=== PATIENT | female | born 1995 | race American Indian/Alaskan Native ===

== ENCOUNTER 2022-06-03 11:54 | Emergency (ER) | payer SELFPAY ==
[2022-06-03 12:18] VITALS: BP 108/72
== END 2022-06-03 15:45 | disposition left against medical advice (07) ==
LOC: ED 11:54
DX: J02.9 Acute pharyngitis, unspecified (principal); Z53.21 Procedure and treatment not carried out due to patient leaving prior to being seen by health care provider